=== PATIENT | female | born 1980 | race Two or more races ===

== ENCOUNTER 2019-02-18 09:06 | Outpatient (CLI) | payer OTHER ==
[~2019-02-18 09:06] MED LIST: KETO10TA2 PO
== END 2019-02-18 09:27 | disposition home or self-care (01) ==
LOC: SONOGRAMA 09:06 → MAMO-SONO 09:15 → SONOGRAMA 09:27
DX: R22.31 Localized swelling, mass and lump, right upper limb (principal)

== ENCOUNTER 2020-01-20 05:49 | Day surgery (SDC) | payer OTHER | END 2020-01-20 10:40 | disposition home or self-care (01) | LOC: AMB-ENDOS 05:49 → ADM 14:00 → AMB-ENDOS 14:00 | DX: K62.89 Other specified diseases of anus and rectum (principal); K57.30 Diverticulosis of large intestine without perforation or abscess without bleeding; K64.1 Second degree hemorrhoids; Z12.11 Encounter for screening for malignant neoplasm of colon ==

== ENCOUNTER 2020-01-21 08:47 | Outpatient (CLI) | payer OTHER | END 2020-01-21 09:00 | disposition home or self-care (01) | LOC: SONOGRAMA 08:47 | DX: R10.10 Upper abdominal pain, unspecified (principal); R07.1 Chest pain on breathing; R10.2 Pelvic and perineal pain ==

== ENCOUNTER 2023-12-15 15:14 | Outpatient (CLI) | payer OTHER | END 2023-12-15 15:22 | disposition home or self-care (01) | LOC: SONOGRAMA 15:14 | PROVIDERS: ATTEND Internal Medicine Gastroenterology | DX: E04.8 Other specified nontoxic goiter (principal) ==

== ENCOUNTER 2023-12-16 09:01 | Outpatient (CLI) | payer OTHER | END 2023-12-16 09:14 | disposition home or self-care (01) | LOC: SONOGRAMA 09:01 | PROVIDERS: ATTEND Internal Medicine Gastroenterology | DX: R16.0 Hepatomegaly, not elsewhere classified (principal) ==

== ENCOUNTER 2025-08-28 09:38 | Emergency (ER) | payer OTHER ==
[~2025-08-28] VITALS: Ht 172.7 cm; Wt 72.1 kg
[2025-08-28 10:27] LABS: BASO % 0.8 % (0.1-1.2); EOS # 0.08 (0.04-0.54); EOS % 1.1 % (0.7-7.0); LYMPH # 2.32 (1.18-3.74); LYMPH % 32.5 % (19.3-53.1); MEAN PLATELET VOLUME 9.70 fl (9.4-12.4); MONO # 0.59 (0.24-0.82); MONO % 8.3 % (4.7-12.5); NEUT # 4.06 (1.56-6.13); NEUT % 57.0 % (34.0-71.1); RED CELL DISTRIBUTION WIDTH 11.7 % (11.6-14.4)
[2025-08-28 10:53] LABS: INR 0.98
[2025-08-28 11:06] LABS: URINE APPEARANCE Clear; URINE BILIRRUBIN Negative (NEGATIVE); URINE BLOOD Negative; URINE COLOR Yellow; URINE GLUCOSE Negative (NEGATIVE); URINE KETONE Negative (NEGATIVE); URINE LEUKOCYTE Negative; URINE NITRATE Negative; URINE PROTEIN Negative (NEGATIVE); URINE UROBILINOGEN 0.2 E.U./dl
[2025-08-28 11:11] LABS: URINE BACTERIA 146.3 uL (0.0-1933); URINE EPITHELIAL CELLS 13.4 uL (0.0-38.8); URINE RBC 4.8 uL (0.0-20.8); URINE WBC 3.6 uL (0.0-23.2)
[2025-08-28 11:17] LABS: URINE CAST 0.00 uL (0.0-1.40)
[2025-08-28 11:34] LABS: ALT/SGPT 28.0 U/L (12-78); AST/SGOT 16.0 U/L (15-37); BILIRUBIN TOTAL 0.32 mg/dL (0.3-1.2); BUN CREA RATIO 33.0 (7.0-25.0); CREATININE SERUM 0.63 mg/dL (0.55-1.02); GFR 101.29; GLOBULINA 3.1 G/DL (2.4-3.5); GLUCOSE FASTING 92.0 mg/dL (65-100); OSMOLALITY SERUM 284.0 MOSM/KG (275-295); PHOSPHOKINASE CREATININE 97.0 U/L (26-192); TSH 1.04 uIU/mL (0.358-3.74)
[2025-08-28] MEDS ORDERED: ASPIRIN 325 MG TABLET PO ONE (12:45)
[2025-08-28] MEDS ORDERED: ACETAMINOPHEN 325 MG TABLET PO ONE (12:56)
[2025-08-28] MEDS ORDERED: CLOPIDOGREL BISULFATE 75 MG TABLET PO ONE ×2 (13:15→14:00)
[2025-08-28] MEDS ORDERED: ATORVASTATIN CALCIUM 40 MG TABLET PO ONE (13:15)
== END 2025-08-28 15:24 | disposition left against medical advice (07) ==
LOC: ER 09:39
PROVIDERS: General Practice
DX: R55 Syncope and collapse (principal); R29.810 Facial weakness; T14.8XXA Other injury of unspecified body region, initial encounter; W19.XXXA Unspecified fall, initial encounter; Y93.89 Activity, other specified; Y92.012 Bathroom of single-family (private) house as the place of occurrence of the external cause; Y99.9 Unspecified external cause status